=== PATIENT | male | born 1955 | race Caucasian/White ===

== ENCOUNTER 2017-09-05 07:53 | Observation (INO) | payer OTHER ==
[2017-09-05] MEDS ORDERED: AMIODARONE HCL 150 MG/3 ML VIAL ONE (08:04)
[2017-09-05] MEDS ORDERED: AMIODARONE HCL 150 MG/3 ML VIAL IVP ONE (08:08)
[2017-09-05] MEDS ORDERED: NS 500 ML IV ONE (08:08)
--- NOTE | 2017-09-05 08:17 | CPEKG ---
Heart Rate: 83 RR Interval: 723 P-R Interval: 172 QRSD Interval: 174 QT Interval: 456 QTC Interval: 536 P [place]: 49 QRS [place]: -15 T Wave [place]: 75 EKG Severity - ABNORMAL ECG - EKG Impression: SINUS RHYTHM EKG Impression: IVCD, CONSIDER ATYPICAL LBBB Electronically Signed By: Scottie Doss 10-Sep-2017 11:41:12
[2017-09-05 08:22] LABS: % IMMATURE GRANULYOCYTES 0.5 % (0.0-1.1); ABSOLUTE IMMATURE GRANULOCYTES 0.05 10^3/uL (0.00-0.10); ADD DIFF? NO; ADD MORPH? NO; ADD SCAN? NO; ATYPICAL LYMPHOCYTE FLAG 0 (0-99); FRAGMENT RBC FLAG 0 (0-99); HEMATOCRIT 42.4 % (40.0-51.0); HEMOGLOBIN 14.8 g/dL (13.7-17.5); LEFT SHIFT FLG 0 (0-99); LIPEMIA HEMOLYSIS FLAG 90 (0-99); MEAN CELL HEMOGLOBIN 34.3 pg (27.9-34.1); MEAN CELL HEMOGLOBIN CONCENTR. 34.9 g/dL (32.4-36.7); MEAN CELL VOLUME 98.1 fL (81.5-99.8); MEAN PLATELET VOLUME 10.4 fL (8.7-11.7); PLATELET CLUMPS FLAG 0 (0-99); PLATELET COUNT 229 10^3/uL (150-400); RED BLOOD CELL COUNT 4.32 10^6/uL (4.40-6.38); RED CELL DISTRIBUTION WIDTH 12.4 % (11.5-15.2)
[2017-09-05] MEDS ORDERED: fentaNYL 100 MCG/2 ML INJ ONE ×2 (08:24→10:13)
[2017-09-05] MEDS ORDERED: LIDOCAINE 1% 300 MG/30 ML SDV ONE (08:24)
[2017-09-05] MEDS ORDERED: IOPAMIDOL (ISOVUE-370) 150 ML BTL IV ONE ×2 (08:25→09:55)
[2017-09-05] MEDS ORDERED: MIDAZOLAM 2 MG/2 ML VIAL ONE ×2 (08:25→10:14)
--- NOTE | 2017-09-05 08:27 | EDPHY ---
H & P Time Seen by Provider: 09/05/17 08:02 HPI/ROS: HPI Chest pain, jaw pain, palpitations. 62-year-old male by ambulance. 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 He has a history of ventricular tachycardia. He reports he has had an ablation procedure in the past in [place] for some type of tachycardia. This was done about a year ago. He also reports a history of coronary artery disease with 1 stent placed 5 years ago. At 7:30 a.m. he was walking up the stairs to his job site. He suddenly felt palpitations described as a rapid heart rate followed by pain through his entire jaw, chest pain described as mid substernal deep and aching and he became diaphoretic. On my evaluation at this time he is now feeling better. His initial rhythm strip indicates ventricular tachycardia. ROS: Constitutional: No fever, no chills. No weakness. As above Eyes: No discharge. No changes in vision. ENT: No sore throat. No nasal congestion or rhinorrhea. Respiratory: No cough. No shortness of breath. Cardiac: As above. Gastrointestinal: No abdominal pain, no vomiting, no diarrhea. Genitourinary: No hematuria. No dysuria or increased frequency with urination. Musculoskeletal: No back pain. No neck pain. No myalgias or arthralgias. As above. Skin: No rashes. Neurological: No headache. No focal weakness or altered sensation. Past medical history: As above. Social history: Nonsmoker. Denies alcohol. Physical Exam: General Appearance: Alert, no distress. He is mildly anxious. This patient is responding to questions appropriately and in full sentences. This patient appears well-hydrated and well-nourished. Eyes: Pupils equal and round no pallor or injection. No lid edema, erythema or injection. Respiratory: There are no retractions, lungs are clear to auscultation with good air movement bilaterally. Cardiovascular: Regular rate and rhythm. No murmur appreciated. Gastrointestinal: Abdomen is soft and nontender, no masses, bowel sounds normal. No focal tenderness at McBurney's point. No Avila sign. Neurological: Motor sensory function is grossly intact. Cranial nerves are normal. Gait is normal. Skin: Warm and dry, no rashes. Musculoskeletal: Neck is supple and nontender. Extremities are symmetrical. All joints range without pain or impingement. Psychiatric: No agitation. No depression. Database: EKG: EKG time is 8:02 a.m.: EKG shows a wide complex tachycardia with ventricular rate of 167. Interpreted by me. EKG time 8:09 a.m. a.m.: Significant for a sinus rhythm with interventricular conduction delay versus atypical left bundle branch block. Discordance appears appropriate. Interpreted by me. Imaging: Chest x-ray AP portable; the cardiac mediastinal silhouette is unremarkable. No evidence of infiltrate or pneumothorax. No acute cardiopulmonary disease process noted. Interpreted by me. Procedures: Emergency department course: From triage an EKG was performed and reviewed by myself. His vital signs have been reviewed. He was moved initially from room 12 to room 2.. When placed on the monitor in room 2 he is now in a wide complex sinus rhythm with ventricular rate of 85. Pacer pads were placed. 2 large-bore IVs placed. He was started on IV normal saline with 500 cc to be given over the next 30 min. He was given 150 mg of IV amiodarone. The patient denies a prior history of a left bundle branch block. We could find no other EKGs in our database. We are presuming this is new. Cardiology paged. 8:20 a.m., spoke with on-call percussion instrument repairer Dr. Jonny Gao. He is currently on his way to the emergency department where he will see this patient shortly. He will plan on taking the patient to the [facility] based on EKGs in above history. 8:25 a.m., patient currently resting comfortably. Blood pressure 154/103. He has received his amiodarone. directory carrier shows a wide complex sinus rhythm with ventricular rate of 78. Pulse oximetry is 96%. He is asymptomatic at this time. No chest pain. No shortness of breath. 8:40 a.m., patient re-evaluated. Resting comfortably at this time. Asymptomatic. Blood pressure 137/79. directory carrier shows a sinus rhythm with ventricular rate of 70. principal technical specialist at the bedside currently. Cardiology, Dr. Gao is at the bedside at 9:00 a.m.. His plan will be to take this patient to the [facility]. 9:10 a.m., patient taken to the [facility] in stable condition. He is still asymptomatic. Differential Diagnosis: The differential diagnosis on this patient includes but is not limited to acute coronary syndrome, ventricular tachycardia. This represents a partial list of diagnoses considered. These considerations are based on history, physical exam , past history, reassessment and diagnostic testing. Smoking Status: Never smoked Constitutional: Initial Vital Signs Heart Rate 170 H 09/05/17 08:00 O2 Delivery Mode Nasal Cannula O2 (L/minute) 2 Allergies/Adverse Reactions: No Known Allergies Allergy (Unverified 09/05/17 07:59) Home Medications: Medication Instructions Recorded Valsartan/Hydrochlorothiazide 1 each PO DAILY 09/05/17 [Valsartan-Hctz 320-25 mg Tab] amLODIPine BESYLATE [Norvasc 5 mg 5 mg PO DAILY 09/05/17 (*)] metFORMIN HCL [Glucophage 500 mg 500 mg PO BIDMEAL 09/05/17 (*)] Aspirin EC [Aspirin EC 325 mg (*)] 325 mg PO DAILY tab 09/06/17 Atorvastatin Calcium [Lipitor 40 40 mg PO DAILY #90 tab 09/06/17 mg (*)] Carvedilol [Coreg (*)] 12.5 mg PO BIDMEAL #60 tab 09/06/17 Clopidogrel Bisulfate [Plavix (*)] 75 mg PO DAILY #90 tab 09/06/17 Nitroglycerin [Nitrostat 0.4 mg 0.4 mg SL Q5M PRN #1 btl 09/06/17 (*)] Medical Decision Making Critical Care Time: I spent a total of 42 minutes of critical care time in obtaining history, performing a physical exam, bedside monitoring of interventions, collecting and interpreting tests and discussion with consultants but not including time spent performing procedures. - Data Points Laboratory Results: Laboratory Results 09/05/17 08:15 09/05/17 08:15 Medications Given: Discontinued Medications Amiodarone HCl (Amiodarone Hcl) 150 mg IVP EDNOW ONE Stop: 09/05/17 08:09 Last Admin: 09/05/17 08:12 Dose: 150 mg Aspirin Buffered (Aspirin Ec) 325 mg PO DAILY ELSA Stop: 03/05/18 08:59 Last Admin: 09/06/17 09:44 Dose: 325 mg Atorvastatin Calcium (Lipitor) 40 mg PO DAILY ELSA Stop: 03/05/18 08:59 Last Admin: 09/06/17 09:44 Dose: Not Given Clopidogrel Bisulfate (Plavix) 600 mg PO ONCE ONE Stop: 09/05/17 10:59 Last Admin: 09/05/17 16:37 Dose: Not Given Clopidogrel Bisulfate (Plavix) 75 mg PO DAILY ELSA Stop: 03/05/18 08:59 Last Admin: 09/06/17 09:44 Dose: 75 mg Sodium Chloride (Ns) 500 mls @ 1,000 mls/hr IV EDNOW ONE PRN Reason: Protocol Stop: 09/05/17 08:37 Last Admin: 09/05/17 08:13 Dose: 500 mls Sodium Chloride (Ns) 1,000 mls @ 100 mls/hr IV CONT ELSA Stop: 09/05/17 20:59 Last Admin: 09/05/17 16:37 Dose: Not Given Departure - Departure Disposition: To OP Cath/Surgery Clinical Impression: Ventricular tachycardia, Chest pain Condition: Good
[2017-09-05 08:31] LABS: INR 0.95 (0.83-1.16); PROTIME(PATIENT) 12.9 SEC (12.0-15.0)
[2017-09-05 08:32] LABS: APTT 25.4 SEC (23.0-38.0)
[2017-09-05 08:33] LABS: ANION GAP 15 mEq/L (8-16); CALCIUM 9.8 mg/dL (8.5-10.4); CARBON DIOXIDE 26 mEq/l (22-31); CHLORIDE 104 mEq/L (97-110); CREATININE 1.2 mg/dL (0.7-1.3); GLOMERULAR FILTRATION RATE > 60; GLUCOSE 218 mg/dL (70-100); POTASSIUM 3.8 mEq/L (3.5-5.2); SODIUM 145 mEq/L (134-144)
[2017-09-05 08:45] LABS: CK-MB INTERPRETATION NEGATIVE (NEGATIVE); TROPONIN I < 0.012 ng/mL (0.000-0.034)
[2017-09-05 08:48] LABS: CREATINE KINASE-MB FRACTION 8.21 ng/mL (0.00-3.19)
[2017-09-05] MEDS ORDERED: BIVALIRUDIN 250 MG/5 ML VIAL IV ONE (10:04)
--- NOTE | 2017-09-05 10:30 | GHP ---
[f rep st] HISTORY AND PHYSICAL DATE OF ADMISSION: 09/05/2017 REASON FOR ADMISSION: New onset of acute substernal chest pain, jaw pain, diaphoresis and shortness of breath. HISTORY OF PRESENT ILLNESS: The patient is a pleasant 62-year-old gentleman with a known history of coronary artery disease with previous PCI to unknown vessel at this time coupled with a history of PVCs per patient's report. I do not have his records for my review at this time. His primary assistant teacher primary is Dr. Dalton at [facility] in [place]. 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 He states he had an acute onset of substernal chest pain and pressure that radiated to his right jaw associated with marked diaphoresis and shortness of breath. Symptoms intensified prompting him to seek medical attention and brought to [facility] for further evaluation. The patient states he has had a myocardial infarction approximately 5 years ago and the symptoms that he experienced this morning were identical but less intense than the pain he experienced then. On admission, the ECG was consistent with a wide-complex regular tachycardia at 167 beats per minute consistent with ventricular tachycardia. He subsequently converted to a sinus rhythm with a left bundle branch block. We have no known history of prior left bundle branch block. When patient is asked specifically about history of left bundle branch block, he is uncertain. His does not know the answer to that question either. Currently, at the time of my exam, he is resting comfortably without complaints in sinus rhythm and hemodynamically stable. He states his chest symptoms have resolved. Of note, he did state he had a left heart catheterization in March of this year. He states the results of that were "normal." I do not have his angiograph results for my review at this time. He also states he did undergo an ablation for what sounds like PVCs. This was performed down at [facility]. Currently, he denies any chest pain, chest pressure, shortness of breath. He is awake, alert, oriented and appropriate. PAST MEDICAL HISTORY: 1. Coronary artery disease with prior myocardial infarction and percutaneous coronary intervention. 2. Borderline diabetes. 3. Hypertension. MEDICATIONS ON ADMISSION: He is currently on metformin and aspirin. ALLERGIES: No known allergies to medications. SOCIAL HISTORY: He is lifelong nonsmoker. He is , he lives with his . He works as a contractor. FAMILY HISTORY: No family history of premature coronary artery disease. PHYSICAL EXAMINATION: VITAL SIGNS: Blood pressure 137/92, heart rate of 69, respiratory rate of 20, oxygen saturation 95% on 2 L. GENERAL: He is awake, alert, oriented, appropriate. No apparent distress. NECK: There is no evidence of JVP or carotid bruits. LUNGS: Clear to auscultation bilaterally. CARDIAC: S1, S2. Regular rate and rhythm. No murmurs, rubs, or gallops. ABDOMEN: Obese, soft, nontender, nondistended. I cannot appreciate any pulsatile mass or abdominal bruit. There is no evidence of cyanosis, clubbing or edema. DATA: Initial ECG demonstrates wide-complex tachycardia at 167 beats per minute consistent with ventricular tachycardia. Subsequent repeat EKG demonstrates sinus rhythm with left bundle branch block. Uncertain if this is an old left bundle. No previous ECGs for comparison. LABORATORY DATA: White blood cell count 11.06, hemoglobin 14.8, hematocrit 42.4 , platelet count 229. INR 0.95. Sodium 145, potassium 3.8, chloride 104, bicarb 26, BUN 25, creatinine 1.2, glucose 218, calcium 9.8. CK-MB fraction 8.21 , troponin is less than 0.012. Full chest x-ray demonstrates poor inspiratory effort with mild compressive changes at the lung bases right greater than left, interstitial infiltrate is felt to be possible but less likely. IMPRESSION: 1. New onset of acute substernal chest pain with diaphoresis and jaw pain. 2. Possible new left bundle branch block. 3. Ventricular tachycardia. 4. Known history of coronary artery disease with previous percutaneous coronary intervention with myocardial infarction approximately for 5 years ago. A 62-year-old gentleman with constellation of symptoms, as outlined above in the setting of known history of coronary artery disease, presents now with acute onset of discomfort and evidence of wide-complex tachycardia consistent with ventricular tachycardia and now at sinus rhythm with underlying left bundle branch block. We have reviewed his lab work and ECG with patient in detail. I have recommended diagnostic left heart catheterization in the setting of his presentation with new left bundle and ventricular tachycardia. He did have a left heart cath earlier this summer I do not have that report available to me. Despite the fact that he had an angiogram that was unremarkable in March, I still think he requires left heart catheterization at this time based on his presentation, symptoms and known history of heart disease. We have discussed risks and benefits. He is agreeable to pursue. He has no contraindication to dual antiplatelet therapy. He denies any history of peptic ulcer disease or GI bleeding. He has no upcoming or pending surgeries. PLAN: 1. Will plan on diagnostic left heart catheterization at this time. 2. Further workup pending results of diagnostic left heart catheterization. 30 minutes spent coordinating care /[id number]/MODL MTDD
[2017-09-05] MEDS ORDERED: NITROGLYCERIN 1,500 MCG/15 ML VIAL MISC ONE (10:32)
[2017-09-05] MEDS ORDERED: CLOPIDOGREL BISULFATE 75 MG TAB ONE (10:36)
[2017-09-05] MEDS ORDERED: HYDROCODONE/APAP 5/325 TAB PO PRN (10:58)
[2017-09-05] MEDS ORDERED: ONDANSETRON 4 MG/2 ML VIAL IVP PRN (10:58)
[2017-09-05] MEDS ORDERED: ATROPINE SULFATE 1 MG/10 ML SYR IVP PRN (10:58)
[2017-09-05] MEDS ORDERED: LORazepam 2 MG/ML INJ IVP PRN (10:58)
[2017-09-05] MEDS ORDERED: TEMAZEPAM 15 MG CAP PO PRN (10:58)
[2017-09-05] MEDS ORDERED: OXYCODONE/APAP 5/325 TAB PO PRN (10:58)
[2017-09-05] MEDS ORDERED: CLOPIDOGREL BISULFATE 75 MG TAB PO ONE (10:58)
[2017-09-05] MEDS ORDERED: NITROGLYCERIN 0.4 MG BTL SL PRN (10:58)
[2017-09-05] MEDS ORDERED: NS 1,000 ML IV SCH (11:00)
--- NOTE | 2017-09-05 11:09 | CPEKG ---
Heart Rate: 167 RR Interval: 359 QRSD Interval: 156 QT Interval: 328 QTC Interval: 547 P [place]: 0 QRS [place]: -29 T Wave [place]: 203 EKG Severity - ABNORMAL ECG - EKG Impression: EXTREME TACHYCARDIA WITH WIDE COMPLEX, NO FURTHER RHYTHM ANALYSIS ATTEMPTED Electronically Signed By: Scottie Doss 10-Sep-2017 11:41:53
--- NOTE | 2017-09-05 11:11 | CPEKG ---
Heart Rate: 57 RR Interval: 1053 P-R Interval: 152 QRSD Interval: 172 QT Interval: 532 QTC Interval: 518 P [place]: 23 QRS [place]: -16 T Wave [place]: -14 EKG Severity - ABNORMAL ECG - EKG Impression: SINUS RHYTHM EKG Impression: MULTIPLE ATRIAL PREMATURE COMPLEXES EKG Impression: LEFT BUNDLE BRANCH BLOCK EKG Impression: COMPARED WITH August 8:09 A.M. ATRIAL ECTOPY NOW PRESENT Electronically Signed By: Teresita Browne 05-Sep-2017 13:37:26
--- NOTE | 2017-09-05 12:44 | CPIP ---
[f rep st] INVASIVE CARDIAC PROCEDURE DATE OF PROCEDURE: 09/05/2017 REPORT TITLE: Diagnostic left heart catheterization. INDICATION FOR PROCEDURE: Acute onset of chest pain radiating to the jaw associated with diaphoresis and shortness of breath, coupled with wide-complex tachycardia on admission, consistent with ventric ular tachycardia, in the setting of known history of coronary artery disease with previous PCI to the LAD. PROCEDURE PERFORMED: 1. Cardiac catheterization. 2. Left coronary angiography. 3. Right coronary angiography. 4. Left ventriculogram. DESCRIPTION OF PROCEDURE: After informed consent was obtained, the patient was brought to the [facility] catheterization lab where he was prepped and draped in a sterile fashion. Using 1% lidocaine, the right groin was anesthetized using modified Seldinger technique. A 6-Vietnamese catheter was placed in t he right common femoral artery without complications. JL4 catheter was used to take images of the le ft coronary anatomy in multiple projections. JL4 catheter was exchanged over a guidewire for a JR4 c atheter. JR4 catheter was used to take images of the right coronary anatomy in multiple projections. JR4 catheter was exchanged over a guidewire for angled pigtail catheter. Angled pigtail catheter w as used to cross the aortic valve. Left ventriculogram was performed. LVEDP was assessed and aortic valve gradient pullback was assessed. The patient tolerated the procedure well. Angled pigtail cat heter was removed over a guidewire without complications. FINDINGS: 1. The left main is normal size and caliber. It bifurcates into left anterior descending and left c ircumflex coronary artery. There is no evidence of coronary disease within the left main. 2. Left anterior descending. The left anterior descending demonstrates a patent stent to the proxim al LAD. There are some imna-ci-mamgxpaz luminal irregularities within the proximal mid and distal LA D. There is significant stenosis of the 2nd diagonal branch greater than 2 mm with JOSÉ MIGUEL 2 grade flow . 3. Left circumflex is dominant vessel. There are mild luminal irregularities in the circumflex with no evidence of flow-limiting stenosis. 4. The right coronary artery branches into a PDA and PLV branch. There are some mild luminal irregu larities within the right coronary artery. HEMODYNAMICS: LVEF 50% with some mild anterior wall hypokinesis. LVEDP 29 mmHg. Aortic valve gradi ent none. CONCLUSION: 1. Severe single-vessel branch disease in a diagonal branch a greater than 2 mm. 2. Luminal irregularities within the LAD, circumflex, and right coronary artery. 3. LVEF 50% with mild anterior wall hypokinesis. PLAN: I have reviewed the images with my interventional colleague, Dr. Rojas. We will plan for per cutaneous coronary intervention to the diagonal branch. /[id number]/MODL
--- NOTE | 2017-09-05 14:04 | CPIP ---
[f rep st] INVASIVE CARDIAC PROCEDURE PROCEDURE PERFORMED: 1. Coronary catheterization. 2. Percutaneous transluminal coronary angioplasty and stent placement of the principal diagonal with the use of a 2.25 x 28 Synergy drug-eluting stent. 3. Manual pressure arteriotomy repair. COMPLICATIONS: None. INDICATIONS/APPROPRIATE USE CRITERIA: The patient has evidence of a subendocardial AK and wide-compl ex tachycardia with associated chest pain and elevated troponin. Selective coronary angiography, lef t heart catheterization and left ventriculogram had been previously performed by my partner, Dr. Jo-Ann Gao. Briefly, the patient has a codominant system and noted on the angiography was evidence of a 99% obstruction of the principal diagonal with JOSÉ MIGUEL-1 flow into that vessel, consistent with this arzia ng the culprit lesion. The LAD has been previously stented across the principal diagonal vessel, whi ch is the 2nd diagonal, as well as the septal branch. The left main coronary lumen is approximately 8 mm in size and bifurcates into an LAD and circumflex system. The circumflex is a codominant vessel . The LAD, as I mentioned, has been previously stented. There is a 40% stenosis within the stented segment, so consistent with an in-segment stenosis. The 2nd diagonal beta branch is subtotally occlu ded with a 99% obstruction and JOSÉ MIGUEL-1 flow. In the mid LAD, there is another 50% lesion which is delores y focal, and there is diffuse disease along the LAD proper including at the apex where the LAD wraps around, moderately providing flow in the interventricular sulcus posteriorly. A 6-Sudanese 3.5 EBU catheter was used for guide catheter support. A 0.014 Intuition wire was advanced across the lesion in question, and the vessel was dilated with a 1.5 x 15 Emerge balloon. After the principal treatment, we were unable to place a 2.25 stent because of it hanging on the stent strut. We therefore performed a balloon angioplasty of the LAD diagonal stent strut with the use of a 2.5 x 12 Emerge balloon done at low pressure. I was able to then insert a 2.25 x 28 Synergy drug-eluting stent and inflate that at maximum pressure of 12 atmospheres, with excellent angiographic results, 0% residual stenosis of the 99% obstruction. We then ballooned distal to the stent with the use of a 2 .0 x 12 Emerge balloon to allow for the vessel to taper down to its more normal caliber. Postoperatively, there was 0% residual stenosis and JOSÉ MIGUEL-3 flow to the distal diagonal vessel with ex cellent angiographic results at the end of the procedure. The patient tolerated the procedure well w ithout immediate complication, returned to the post cath recovery unit in good and stable condition, where a stat postoperative EKG will be obtained. IMPRESSION: Successful acute infarct angioplasty and stent implantation for a subendocardial myocard ial infarction involving the principal and 2nd diagonal, as previously mentioned. /[id number]/MODL
[2017-09-06 04:33] LABS: % IMMATURE GRANULYOCYTES 0.3 % (0.0-1.1); ABSOLUTE IMMATURE GRANULOCYTES 0.03 10^3/uL (0.00-0.10); ADD DIFF? NO; ADD MORPH? NO; ADD SCAN? NO; ATYPICAL LYMPHOCYTE FLAG 10 (0-99); FRAGMENT RBC FLAG 0 (0-99); HEMATOCRIT 39.2 % (40.0-51.0); HEMOGLOBIN 13.4 g/dL (13.7-17.5); LEFT SHIFT FLG 0 (0-99); LIPEMIA HEMOLYSIS FLAG 90 (0-99); MEAN CELL HEMOGLOBIN 33.9 pg (27.9-34.1); MEAN CELL HEMOGLOBIN CONCENTR. 34.2 g/dL (32.4-36.7); MEAN CELL VOLUME 99.2 fL (81.5-99.8); MEAN PLATELET VOLUME 10.7 fL (8.7-11.7); PLATELET CLUMPS FLAG 0 (0-99); PLATELET COUNT 206 10^3/uL (150-400); RED BLOOD CELL COUNT 3.95 10^6/uL (4.40-6.38); RED CELL DISTRIBUTION WIDTH 12.1 % (11.5-15.2)
[2017-09-06 04:43] LABS: ALBUMIN 3.5 g/dL (3.5-5.0); ANION GAP 11 mEq/L (8-16); ASPARTATE AMINOTRANSFERASE 41 IU/L (17-59); BILIRUBIN,TOTAL 0.7 mg/dL (0.1-1.4); CALCIUM 9.5 mg/dL (8.5-10.4); CARBON DIOXIDE 33 mEq/l (22-31); CHLORIDE 101 mEq/L (97-110); CREATININE 1.1 mg/dL (0.7-1.3); GLOMERULAR FILTRATION RATE > 60; GLUCOSE 102 mg/dL (70-100); LACTATE DEHYDROGENASE 452 IU/L (313-618); MAGNESIUM 1.9 mg/dL (1.6-2.3); SODIUM 145 mEq/L (134-144)
--- NOTE | 2017-09-06 05:20 | CPEKG ---
Heart Rate: 61 RR Interval: 984 P-R Interval: 160 QRSD Interval: 174 QT Interval: 496 QTC Interval: 500 P [place]: 40 QRS [place]: -71 T Wave [place]: 26 EKG Severity - ABNORMAL ECG - EKG Impression: SINUS RHYTHM EKG Impression: ATRIAL PREMATURE COMPLEX EKG Impression: NONSPECIFIC IVCD WITH LAD EKG Impression: LEFT VENTRICULAR HYPERTROPHY Electronically Signed By: Huyen Trejo 06-Sep-2017 06:03:43
[2017-09-06 07:43] VITALS: BP 151/84; RESP 14; TEMP 97.9; O2SAT 90
[2017-09-06] MEDS ORDERED: ATORVASTATIN CALCIUM 40 MG TAB PO SCH (09:00)
[2017-09-06] MEDS ORDERED: ASPIRIN EC 325 MG TAB PO SCH (09:00)
[2017-09-06] MEDS ORDERED: CLOPIDOGREL BISULFATE 75 MG TAB PO SCH (09:00)
[2017-09-06 09:03] VITALS: PULSE 77
--- NOTE | 2017-09-06 09:19 | PDCARPN ---
Cardiology Progress Note Assessment/Plan: Assessment: 1. Acute Myocardial infarction with successful PCI to D2 with 2.25 x 28 mm JOSE 2. Non sustained VT 3. CAD 4 HTN 5. Pre DM Plan: 1. Plavix 75 mg daily. Rx given for 90 days with 3 refills 2. Increase Coreg to 12.5 mg bid 3. Increase Atorvastatin to 40 mg daily 4. Aspirin 325 mg dialy 5. Continue Valsartan/HCTZ 320/25 mg daily 6. Continue Amlodipine 5 mg daily 7. Hold metformin until Friday, September 08, 2017 8. Follow up [facility] primary go cart mechanic. Dr. Koroma at [facility] 9. Cardiac Rehab 10. Post PCI instructions provided 09/06/17 09:15 Subjective: MR. Moralez is feeling well. No cadiac complaints. No events on telemetry. Right groin is stable without hematoma or ecchymosis. Reviewed/Discussed With: multidisciplinary team Time Spent With Patient: 30 min coordinating discharge Objective: Vital Signs (8 Hrs) Temp Pulse Resp BP Pulse Ox 09/06/17 09:02 77 09/06/17 07:41 36.6 C 61 14 151/84 H 90 L 09/06/17 03:50 36.5 C 60 15 148/85 H 92 Intake/Output (24 Hrs) 09/05/17 09/06/17 09/07/17 05:59 05:59 05:59 Intake Total 800 Output Total 150 Balance 650 Intake: Oral (ml) 300 IV Intake (ml) 500 Output: Urine (ml) 150 Urinal 150 Other: Number of Voids Toilet 1 Urinal 1 Result Diagrams: 09/06/17 03:50 09/06/17 03:50 - Physical Exam Constitutional: WDWN Cardiovascular: regular rate and rhythm Peripheral Pulses: 2+: dorsalis-pedis (R), dorsalis-pedis (L) Respiratory: clear to auscultate bilat Neurologic: AAOx3, CN II-XII grossly intact Psychiatric: cooperative, interactive ICD10 Worksheet Patient Problems: Problems Problem Status Onset Ventricular tachycardia Acute Chest pain Acute
--- NOTE | 2017-09-06 11:02 | GDS ---
[f rep st] DISCHARGE SUMMARY ADMISSION DIAGNOSES: 1. Acute myocardial infarction. 2. Nonsustained ventricular tachycardia. 3. Left bundle branch block. 4. Coronary artery disease. 5. Hypertension. 6. Borderline diabetes. HOSPITAL COURSE: The patient is a pleasant 62-year-old gentleman with known history of coronary artery disease with previous PCI to the proximal LAD approximately 4-5 years ago, who presented to [facility] with acute onset of chest and jaw pain and palpitations. He was found to be in ventricular tachycardia that spontaneously broke on its own to a sinus rhythm with underlying left bundle branch block. He had no previous report of left bundle branch block. In the setting of acute onset of symptoms ventricular tachycardia, the patient underwent diagnostic left heart catheterization. He was found to have significant stenosis in the principal 2nd diagonal branch of approximately 99%. He underwent successful PCI with a 2.25 x 28 mm Synergy drug -eluting stent to the second diagonal branch. The left heart catheterization also demonstrated approximately 40% in-stent stenosis of his proximal LAD stent. There was a mid LAD lesion of approximately 50%. There were mild-to- moderate luminal irregularities through the circumflex and right coronary artery. LVEF of 50% on ventriculogram and mildly elevated LVEDP of 29 mmHg. His postoperative course was unremarkable. He tolerated the procedure well. He had no further episodes of ventricular ectopy on telemetry. This morning, he is feeling well. He has no cardiac complaints and is stable for discharge home. MEDICATIONS AT TIME OF DISCHARGE: Include: 1. Aspirin 325 mg daily. 2. Plavix 75 mg daily. 3. Coreg 12.5 mg p.o. b.i.d. 4. Atorvastatin 40 mg daily. 5. Valsartan/hydrochlorothiazide 320/25 mg once daily. 6. Amlodipine 5 mg daily. 7. Nitroglycerin 0.4 mg sublingual q.5 minutes p.r.n. chest pain. 8. Metformin 500 mg p.o. b.i.d. Of note, patient has been instructed not to start his metformin until Friday September 08, 2017. DATA: At time of discharge, white blood cell count 10.3, hemoglobin of 13.4, hematocrit 39.2, platelets of 206. Sodium 145, potassium 4.0, chloride 101, bicarb 33, BUN 23, creatinine 1.1. Magnesium 1.9. PHYSICAL EXAMINATION: VITAL SIGNS: At time of discharge, blood pressure 151/ 84. Heart rate 61, in sinus rhythm. Respiratory rate 14. Oxygen saturation 90% . Temperature 36.6 degrees Celsius. GENERAL: He is awake alert and appropriate. No apparent distress. NECK: There is no evidence of JVP or carotid bruits. LUNGS: Clear to auscultation bilaterally. CARDIAC: S1, S2. Regular rate and rhythm. No murmurs, rubs, or gallops. PMI is not displaced. EXTREMITIES: Right groin site is stable without evidence of hematoma or ecchymosis. Right lower extremity distal pulses are intact. PLAN: 1. Patient will be discharged home. 2. Patient will follow up with his [facility], Dr. Dalton at [facility]. 3. Recommend patient be enrolled in cardiac rehab. MEDICATION CHANGES DURING HOSPITALIZATION: 1. The addition of Plavix 75 mg once daily. It has been explained to patient in detail to remain on this daily without interruption for the next 12 months. 2. Atorvastatin was increased from 20 mg daily to 40 mg daily. 3. Coreg was increased from 12.5 mg once daily to 12.5 mg p.o. b.i.d. DISCHARGE INSTRUCTIONS: Patient has been given postoperative instructions regarding his left heart catheterization. He has been given prescriptions for increased dose of carvedilol, atorvastatin as well as a prescription for Plavix 75 mg daily with 90 pills with 3 refills. 45 minutes spent coordinating discharge /[id number]/MODL MTDD
--- NOTE | 2017-09-06 17:36 | ASDISCHSUM ---
Discharge Information Plan Status:Home with No Needs Medically Cleared to Leave: Discharge Date:09/06/2017 10:09 AM CM D/C Disposition:Home, Routine, Self-Care ADT D/C Disposition:Home, Routine, Self-Care Projected Discharge Date:09/06/2017 10:09 AM Transportation at D/C: Discharge Delay Reason: Follow-Up Date:09/06/2017 10:09 AM Discharge Slot: Final Diagnosis: Placement Information Patient Contact Information Contact Name:KODY Relationship: Address:[address] City:[place] Phone: [facility]/Zip Code:[place] [address] Email: Financial Information Financial Class:HMO and PPO Plans Primary Plan Desc:[employer] PPO Primary Plan Number:[id number] Secondary Plan Desc: Secondary Plan Number: Assessment Information Intervention Information
[2017-09-06] MEDS ORDERED: CARVEDILOL 6.25 MG TAB PO SCH (18:00)
== END 2017-09-06 10:09 | disposition home or self-care (01) ==
LOC: F2W 14:25
PROVIDERS: ADMIT Internal Medicine Cardiovascular Disease; ATTEND Internal Medicine Cardiovascular Disease
PROC: 027034Z Dilation of Coronary Artery, One Artery with Drug-eluting Intraluminal Device, Percutaneous Approach (ICD-10-PCS; principal; 2017-09-05)
PROC: B2151ZZ Fluoroscopy of Left Heart using Low Osmolar Contrast (ICD-10-PCS; 2017-09-05)
PROC: B2111ZZ Fluoroscopy of Multiple Coronary Arteries using Low Osmolar Contrast (ICD-10-PCS; 2017-09-05)
PROC: 4A023N7 Measurement of Cardiac Sampling and Pressure, Left Heart, Percutaneous Approach (ICD-10-PCS; 2017-09-05)
DX: I21.A9 Other myocardial infarction type (principal); T82.857A Stenosis of other cardiac prosthetic devices, implants and grafts, initial encounter; I25.10 Atherosclerotic heart disease of native coronary artery without angina pectoris; I47.2 Ventricular tachycardia; I44.7 Left bundle-branch block, unspecified; I10 Essential (primary) hypertension; R73.03 Prediabetes; I25.2 Old myocardial infarction
CPT/HCPCS: 71010; 92941; 93005; 93458; C1725; C1769; C1887; G0378; 96374; C1874; C9606; J0282; J0583; J1644; J2250; J3010; Q9967

== ENCOUNTER → 2018-10-14 | Outpatient (CLI) | payer OTHER | LOC: FIMAGING 09:25 | PROVIDERS: ATTEND Physician Assistant | DX: M79.671 Pain in right foot (principal) ==

== ENCOUNTER → 2018-11-26 | Outpatient (CLI) | payer OTHER | LOC: FIMAGING 11:00 | PROVIDERS: ATTEND Internal Medicine | DX: J40 Bronchitis, not specified as acute or chronic (principal); R93.89 Abnormal findings on diagnostic imaging of other specified body structures ==

== ENCOUNTER → 2018-11-27 | Outpatient (CLI) | payer OTHER | LOC: CIMAGING 10:13 | PROVIDERS: ATTEND Internal Medicine | DX: R93.89 Abnormal findings on diagnostic imaging of other specified body structures (principal) | CPT/HCPCS: 71250-PO ==

== ENCOUNTER → 2018-12-01 | Outpatient (CLI) | payer OTHER | LOC: CIMAGING 08:48 | PROVIDERS: ATTEND Internal Medicine | DX: I95.9 Hypotension, unspecified (principal); N17.9 Acute kidney failure, unspecified; R74.8 Abnormal levels of other serum enzymes | CPT/HCPCS: 76700-PO ==

== ENCOUNTER → 2018-12-02 | Outpatient (CLI) | payer OTHER | LOC: EMCIMAGING 10:53 ==

== ENCOUNTER → 2018-12-22 | Outpatient (CLI) | payer OTHER | LOC: BHCLAF 11:00 | PROVIDERS: ATTEND Internal Medicine Cardiovascular Disease | DX: I25.10 Atherosclerotic heart disease of native coronary artery without angina pectoris (principal); I10 Essential (primary) hypertension | CPT/HCPCS: 93005-PO ==